=== PATIENT | female | born 1995 | race Caucasian/White ===

== ENCOUNTER 2019-12-31 19:45 | Emergency (ER) | payer OTHER ==
[~2019-12-31] VITALS: Ht 162.6 cm; Wt 82.1 kg
--- NOTE | 2019-12-31 20:48 | NUR ---
PT AMBULATED TO BED 1
--- NOTE | 2019-12-31 20:55 | NUR ---
PT 24 Y/O FEMALE BIB SELF FOR C/O 8 THROAT PAIN. " I FEEL LIKE I HAVE TERRIBLE HEART BURN THAT IS HURTING MY THROAT." PT STATES SHE HAS USED TUMS AND MYLANTA WITH INEFFECTIVE RESULTS. PT ALSO HAS C/O NAUSEA X 3 DAYS. PT LAST EPISODE OF VOMITTING OCCURED X 1 DAY AGO. ABD IS SOFT, ROUND, AND NON-TENDER. PT ADMITS TO BEING 9 WEEKS PREGANT. PT STATES THIS IS HER THIRD PREGANCY AND HAS 1 CHILD AND I MISCARRIAGE. PT DENIES COUGH. RESPIRATIONS ARE EVEN AND UNALBORED. SKIN IS WARM AND DRY TO TOUCH. PT ON MONITOR. BED LOCKED AND IN LOWEST POSITION. MEDHX: NONE ALLERGIES: NKA
--- NOTE | 2019-12-31 22:02 | NUR ---
DR. MONROY AT BEDSIDE.
[2019-12-31] MEDS ORDERED: NACL 0.9% 1,000 ML IV ONE (22:05)
[2019-12-31 22:06] LABS: BASOPHILS # (AUTO) 0.1 K/uL (0.00-0.22); BASOPHILS % (AUTO) 0.8 % (0.0-2.0); EOSINOPHILS % (AUTO) 0.2 % (0.0-4.0); HEMATOCRIT 37.3 % (36-48); HEMOGLOBIN 12.9 g/dL (12.0-16.0); LYMPHOCYTES # (AUTO) 1.1 K/uL (2.5-16.5); LYMPHOCYTES % (AUTO) 15.9 % (20.5-51.1); MEAN CORPUSCULAR HEMOGLOBIN 29 pg (27-31); MEAN CORPUSCULAR HGB CONC 34 g/dL (33-37); MEAN CORPUSCULAR VOLUME 84.1 fL (80-94); MONOCYTES # (AUTO) 0.7 K/uL (0.8-1.0); MONOCYTES % (AUTO) 9.5 % (1.7-9.3); NEUTROPHILS # (AUTO) 5.2 K/uL (1.8-7.7); PLATELET COUNT (AUTO) 192 K/uL (140-450); RED BLOOD CELL COUNT(AUTO) 4.44 MIL/uL (4.20-5.40); RED CELL DISTRIBUTION WIDTH 13.1 % (11.6-13.7); WHITE BLOOD COUNT (AUTO) 7.1 K/uL (4.8-10.8)
[2019-12-31 22:08] LABS: APPEARANCE,URINE CLEAR (CLEAR); BILIRUBIN,URINE NEGATIVE (NEGATIVE); BLOOD, URINE 1+ (NEGATIVE); COLOR,URINE YELLOW (YELLOW); LEUKOCYTE ESTERASE ,URINE 1+ (NEGATIVE); NITRITE, URINE NEGATIVE (NEGATIVE); UGLUCOSE NEGATIVE (NEGATIVE)
[2019-12-31 22:27] LABS: RBC,URINE 0-5 /HPF (0-5)
--- NOTE | 2019-12-31 22:30 | NUR ---
PT IV STARTED AT R AC 20G. IVF GIVEN NS 0.9% 1L BOLUS. IV SITE IS PATENT. NO SWELLING OR C/O PAIN NOTED.
[2019-12-31 22:33] LABS: ALBUMIN 3.9 g/dL (3.4-5.0); ANION GAP 10.2 (8-16); CARBON DIOXIDE 28.2 mmol/L (21-32); CREATININE 0.6 mg/dL (0.6-1.3); POTASSIUM 3.4 mmol/L (3.5-5.1); TOTAL BILIRUBIN 0.3 mg/dL (0.0-1.0)
[2019-12-31 22:41] LABS: NEUTROPHILS % (AUTO) 73.6 % (42.2-75.2)
--- NOTE | 2019-12-31 23:30 | NUR ---
PT IV FLUIDS STILL RUNNING CONTINOUSLY. IV IS PATENT. NO REDNESS, SWELLING, OR C/O PAIN AT THIS TIME. PT STATES THROAT AND EPIGASTRIC PAIN HAS DECREASED AND PAIN IS CURRENTLY 5/10. PT STATES PAIN IS TOLERABLE. HOB UP IN HIGH FOWLERS POSTION. PT DENIES HAVING C/O NAUSEA AT THIS TIME. VOMIT BAG AT BEDISDE. WILL CONTINUE TO MONTIOR.
--- NOTE | 2020-01-01 01:12 | NUR ---
PT HAS C/O NAUSEA. DR. MONROY MADE AWARE AND GAVE NEW ORDER FOR REGLAN 10 MG IM.
[2020-01-01] MEDS ORDERED: METOCLOPRAMIDE 10 MG/2 ML INJ VIAL IM ONE (01:15)
--- NOTE | 2020-01-01 01:18 | NUR ---
PT GIVEN REGLAN 10 MG IVP IN R AC. IV SITE IS PATENT. NO SWELLING, REDNESS, OR C/O PAIN.
[2020-01-01 01:20] VITALS: BP 117/86
--- NOTE | 2020-01-01 01:20 | NUR ---
PATIENT ELOPED FROM FACILITY. DISCHARGE INSTRUCTIONS NOT GIVEN TO PATIENT. NOTIFIED. IV D/C. ID BAND REMOVED.
== END 2020-01-01 01:20 | disposition left against medical advice (07) ==
LOC: MED 19:45
DX: O26.891 Other specified pregnancy related conditions, first trimester (principal); R10.13 Epigastric pain; R07.0 Pain in throat; Z88.8 Allergy status to other drugs, medicaments and biological substances; Z88.5 Allergy status to narcotic agent; Z91.040 Latex allergy status; Z3A.09 9 weeks gestation of pregnancy
CPT/HCPCS: 36415; 80053; 81001; 81025; 82150; 83690; 84484; 84703; 85025; 87086; 96372; 99283; J2765; J7030

== ENCOUNTER 2021-11-23 09:55 | Emergency (ER) | payer OTHER ==
[~2021-11-23] VITALS: Ht 162.6 cm; Wt 89.8 kg
[2021-11-23 09:58] VITALS: BP 129/87
[2021-11-23 12:32] LABS: BASOPHILS # (AUTO) 0.1 K/uL (0.00-0.22); BASOPHILS % (AUTO) 0.4 % (0.0-2.0); EOSINOPHILS # (AUTO) 0.2 K/uL (0-0.4); EOSINOPHILS % (AUTO) 0.7 % (0.0-4.0); HEMATOCRIT 39.9 % (36-48); HEMOGLOBIN 13.3 g/dL (12.0-16.0); LYMPHOCYTES # (AUTO) 2.8 K/uL (2.5-16.5); LYMPHOCYTES % (AUTO) 12.2 % (20.5-51.1); MEAN CORPUSCULAR HEMOGLOBIN 28 pg (27-31); MEAN CORPUSCULAR HGB CONC 33 g/dL (33-37); MONOCYTES # (AUTO) 0.7 K/uL (0.8-1.0); MONOCYTES % (AUTO) 3.1 % (1.7-9.3); NEUTROPHILS # (AUTO) 19.3 K/uL (1.8-7.7); NEUTROPHILS % (AUTO) 83.6 % (42.2-75.2); PLATELET COUNT (AUTO) 220 K/uL (140-450); RED BLOOD CELL COUNT(AUTO) 4.69 MIL/uL (4.20-5.40); RED CELL DISTRIBUTION WIDTH 13.1 % (11.6-13.7); WHITE BLOOD COUNT (AUTO) 23.1 K/uL (4.8-10.8)
[2021-11-23 13:09] LABS: ANION GAP 16.5 (8-16); CARBON DIOXIDE 23.2 mmol/L (21-32); CREATININE 0.6 mg/dL (0.6-1.3); POTASSIUM 3.7 mmol/L (3.5-5.1)
[2021-11-23 13:24] LABS: ALBUMIN 3.9 g/dL (3.4-5.0); FREE T4 (FREE THYROXINE) 1.08 ng/dL (0.76-1.46); THYROID STIMULATING HORMONE 0.63 uIU/mL (0.34-3.74); TOTAL BILIRUBIN 0.8 mg/dL (0.0-1.0)
--- NOTE | 2021-11-23 15:10 | NUR ---
called in lobby and outside for swab, no response
--- NOTE | 2021-11-23 16:00 | NUR ---
called patient in lobby and outside. no response. left without being swabbed.
[2021-11-23 17:11] VITALS: BP 129/87
--- NOTE | 2021-11-23 17:12 | NUR ---
Patient discharged with v/s stable. Written and verbal after care instructions given and explained. Patient verbalized understanding. Ambulatory with steady gait. All questions addressed prior to discharge. Advised to follow up with PMD.
== END 2021-11-23 17:12 | disposition home or self-care (01) ==
LOC: MED 09:55
DX: D72.829 Elevated white blood cell count, unspecified (principal); R00.2 Palpitations; R00.0 Tachycardia, unspecified; Z88.5 Allergy status to narcotic agent; Z88.8 Allergy status to other drugs, medicaments and biological substances; Z20.822 Contact with and (suspected) exposure to COVID-19
CPT/HCPCS: 36415; 71045; 74176; 76705; 80053; 81002; 81025; 83735; 84439; 84443; 85025; 85379; 87426; 87491; 93005; 99285; Q0092

== ENCOUNTER 2022-10-20 14:34 | Emergency (ER) | payer OTHER ==
[~2022-10-20] VITALS: Ht 162.6 cm; Wt 95.3 kg
[2022-10-20 14:49] VITALS: BP 139/88
--- NOTE | 2022-10-20 15:01 | NUR ---
PT AMB TO BED 1.
[2022-10-20] MEDS ORDERED: KETOROLAC 60 MG/2 ML VIAL IM ONE ×2 (15:10→17:14)
[2022-10-20] MEDS ORDERED: IBUP-2213 PO (17:22)
[2022-10-20] MEDS ORDERED: ACET-8905 PO (17:22)
[2022-10-20 17:40] VITALS: BP 120/86
--- NOTE | 2022-10-20 17:40 | NUR ---
Patient discharged with v/s stable. Written and verbal after care instructions FOR CHEST WALL PAIN given and explained. Patient alert, oriented and verbalized understanding of instructions. Ambulatory with steady gait. All questions addressed prior to discharge. ID band removed. Patient advised to follow up with PMD. Rx of HYDROCODONE AND IBUPROFEN given. Opportunity to ask questions provided and answered.
== END 2022-10-20 17:40 | disposition home or self-care (01) ==
LOC: MED 14:34
DX: R07.89 Other chest pain (principal); R53.1 Weakness; M79.601 Pain in right arm; Z88.5 Allergy status to narcotic agent; Z88.8 Allergy status to other drugs, medicaments and biological substances; Z91.040 Latex allergy status
CPT/HCPCS: 93005; 96372; 99283; J1885

== ENCOUNTER 2023-03-20 13:05 | Emergency (ER) | payer OTHER ==
[~2023-03-20] VITALS: Ht 162.6 cm; Wt 95.8 kg
[~2023-03-20 13:05] MED LIST: ACET-8905 PO; IBUP-2213 PO
[2023-03-20 13:52] VITALS: BP 130/100
[2023-03-20] MEDS ORDERED: IBUPROFEN 800 MG TAB PO ONE (14:45)
[2023-03-20] MEDS ORDERED: IBUPROFEN 800 MG TAB ONE (16:48)
[2023-03-20 17:30] VITALS: BP 115/65
--- NOTE | 2023-03-20 17:30 | NUR ---
Patient discharged with v/s stable. Written and verbal after care instructions given and explained. Patient verbalized understanding. Ambulatory with steady gait. All questions addressed prior to discharge. Advised to follow up with PMD. PT. STATES FEELING BETTER. NO ACUTE DISTRESS. AWAKE AND ALERT. NO SOB. STABLE FOR D/C HOME. NO RESPIRATORY DIFFICULTY. PT. D/C WITH MALE FRIEND
== END 2023-03-20 17:30 | disposition home or self-care (01) ==
LOC: MED 13:05
DX: S20.313A Abrasion of bilateral front wall of thorax, initial encounter (principal); M79.662 Pain in left lower leg; M79.661 Pain in right lower leg; R03.0 Elevated blood-pressure reading, without diagnosis of hypertension; Z79.1 Long term (current) use of non-steroidal anti-inflammatories (NSAID); Z91.040 Latex allergy status; Z88.5 Allergy status to narcotic agent; Z88.8 Allergy status to other drugs, medicaments and biological substances; V49.88XA Car occupant (driver) (passenger) injured in other specified transport accidents, initial encounter; Y93.89 Activity, other specified; Y92.89 Other specified places as the place of occurrence of the external cause; Y99.8 Other external cause status
CPT/HCPCS: 71045; 73590; 81025; 99284

== ENCOUNTER 2023-11-19 08:05 | Emergency (ER) | payer OTHER ==
[~2023-11-19] VITALS: Ht 162.6 cm; Wt 95.3 kg
[2023-11-19 08:08] VITALS: BP 127/87; PULSE 107; RESP 16; TEMP 97.3; O2SAT 100
[2023-11-19] MEDS ORDERED: DEXAMETHASONE 10 MG/ML VIAL IM ONE (08:30)
[2023-11-19] MEDS ORDERED: IBUPROFEN CHILDRENS 100 MG/5 ML UDC PO ONE (08:30)
[2023-11-19] MEDS ORDERED: PENI500T20 PO (08:58)
[2023-11-19] MEDS ORDERED: IBUP100S26 PO (08:58)
[2023-11-19] MEDS ORDERED: PHEN177S23 PO (08:58)
[2023-11-19 09:15] VITALS: BP 127/87; PULSE 107; RESP 16; TEMP 97.3; O2SAT 100
[2023-11-19] MEDS ORDERED: CYCL-711 PO (23:48)
[2023-11-19] MEDS ORDERED: AZIT250T4 PO (23:48)
== END 2023-11-19 09:15 | disposition home or self-care (01) ==
LOC: MED 08:05
DX: J03.80 Acute tonsillitis due to other specified organisms (principal); B96.89 Other specified bacterial agents as the cause of diseases classified elsewhere; Z91.040 Latex allergy status; Z88.8 Allergy status to other drugs, medicaments and biological substances; Z79.899 Other long term (current) drug therapy
CPT/HCPCS: 87081; 96372; 99283; J1100

== ENCOUNTER 2023-11-19 19:09 | Emergency (ER) | payer OTHER ==
[~2023-11-19] VITALS: Ht 162.6 cm; Wt 95.3 kg
[~2023-11-19 19:09] MED LIST changes: +IBUP100S26 PO; +PENI500T20 PO; +PHEN177S23 PO
[2023-11-19 19:30] VITALS: BP 121/83; PULSE 128; RESP 19; TEMP 98; O2SAT 98
[2023-11-19] MEDS ORDERED: KETOROLAC 30 MG/ML VIAL IVP ONE (22:35)
[2023-11-19] MEDS ORDERED: NACL 0.9% 1,000 ML IV ONE (22:35)
[2023-11-19] MEDS ORDERED: LORazepam 2 MG/ML VIAL IVP ONE (22:35)
[2023-11-19 22:50] LABS: BASOPHILS # (AUTO) 0.1 K/uL (0.00-0.22); BASOPHILS % (AUTO) 0.5 % (0.0-2.0); EOSINOPHILS % (AUTO) 0.1 % (0.0-4.0); HEMATOCRIT 40.2 % (36-48); HEMOGLOBIN 13.5 g/dL (12.0-16.0); LYMPHOCYTES # (AUTO) 1.6 K/uL (2.5-16.5); LYMPHOCYTES % (AUTO) 8.8 % (20.5-51.1); MEAN CORPUSCULAR HEMOGLOBIN 28 pg (27-31); MEAN CORPUSCULAR HGB CONC 34 g/dL (33-37); MEAN CORPUSCULAR VOLUME 84.6 fL (80-94); MONOCYTES # (AUTO) 0.5 K/uL (0.8-1.0); MONOCYTES % (AUTO) 2.6 % (1.7-9.3); NEUTROPHILS # (AUTO) 16.3 K/uL (1.8-7.7); PLATELET COUNT (AUTO) 277 K/uL (140-450); RED BLOOD CELL COUNT(AUTO) 4.76 MIL/uL (4.20-5.40); RED CELL DISTRIBUTION WIDTH 13.4 % (11.6-13.7); WHITE BLOOD COUNT (AUTO) 18.5 K/uL (4.8-10.8)
[2023-11-19 23:04] LABS: ANION GAP 14.9 (8-16); CARBON DIOXIDE 23.9 mmol/L (21-32); CREATININE 0.8 mg/dL (0.6-1.3); POTASSIUM 3.8 mmol/L (3.5-5.1)
[2023-11-19] MEDS ORDERED: CYCL-711 PO (23:48)
[2023-11-19] MEDS ORDERED: AZIT250T4 PO (23:48)
[2023-11-20] VITALS: BP 131/80; PULSE 122; RESP 16; TEMP 97.3; O2SAT 98
== END 2023-11-20 | disposition home or self-care (01) ==
LOC: MED 19:09
DX: J02.0 Streptococcal pharyngitis (principal); R20.0 Anesthesia of skin; Z88.5 Allergy status to narcotic agent; Z88.8 Allergy status to other drugs, medicaments and biological substances; Z79.899 Other long term (current) drug therapy
CPT/HCPCS: 36415; 80048; 85025; 96361; 96374; 96375; 99284; J1885; J2060; J7030